=== PATIENT | female | born 1960 | race Caucasian/White ===

== ENCOUNTER → 2025-01-26 | Day surgery (SDC) | payer MEDICARE ==
[~2025-01-26] MED LIST: ACETAMINOPHEN 1000 MG/100 ML 100 ML IV ONE; CLARITIN10 MG PO; D3-5000125 MCG; DEXMEDETOMIDINE HCL 2 ML ONE; FENTANYL CITRATE/PF 100MCG/2 ML INJ ONE; FLONASE ALLERG9.9 ML INH; GLYCOPYRROLATE INJ 0.2 MG/ML VIAL ONE; LIDOCAINE HCL 2% LOCAL INJ 5 ML SDV VIAL INJ ONE; LISINOPRIL10 MG PO; MIDAZOLAM HCL 2 MG/2 ML VIAL ONE; NEOSTIGMINE 1 MG/ML 10ML VIAL ONE; ONDANSETRON HCL INJ 2MG/ML 2ML 2 MG/ML VIAL ONE; PROPOFOL IV EMULSION 10 MG/ML 20 ML VIAL ONE; ROCURONIUM BROMIDE 0 ML IV ONE; SEVOFLURANE INHAL SOLN 250 ML PEN BTL ONE; TYLENOL EXTRA500 MG PO; VITAMIN E400 UNI1 PO; XANAX1 MG PO
[2025-01-26] MEDS: LACTATED RINGER'S 1,000 ML ONE (06:08)
[2025-01-26 08:23] VITALS: TEMP 97.5
[2025-01-26] MEDS: ACETAMINOPHEN 1000 MG/100 ML IV ONE (08:54)
[2025-01-26 09:30] VITALS: BP 134/66; PULSE 71; RESP 16; O2SAT 98
== END | disposition home or self-care (01) ==
LOC: OR 05:35
PROVIDERS: ATTEND Otolaryngology Otolaryngology/Facial Plastic Surgery
DX: H65.21 Chronic serous otitis media, right ear (principal); J32.9 Chronic sinusitis, unspecified; H93.A1 Pulsatile tinnitus, right ear; J34.2 Deviated nasal septum; H90.71 Mixed conductive and sensorineural hearing loss, unilateral, right ear, with unrestricted hearing on the contralateral side; I10 Essential (primary) hypertension; M06.9 Rheumatoid arthritis, unspecified; M19.90 Unspecified osteoarthritis, unspecified site; R05.9 Cough, unspecified; F41.9 Anxiety disorder, unspecified; F17.210 Nicotine dependence, cigarettes, uncomplicated; T78.40XA Allergy, unspecified, initial encounter; X58.XXXA Exposure to other specified factors, initial encounter; Z79.899 Other long term (current) drug therapy
CPT/HCPCS: 31237; 69436; 88305; 93005; J0131; J2003; J2250; J2405; J2704; J3010; J7121; J2710